=== PATIENT | male | born 1990 | race Caucasian/White ===

== ENCOUNTER 2019-01-24 08:26 | Emergency (ER) | payer SELFPAY ==
[2019-01-24 09:29] LABS: ADD MAN DIFF? NO
[2019-01-24] MEDS: morphine 2 MG INJ IV ×2 (09:32→10:59)
[2019-01-24] MEDS: FAMOTIDINE 20 MG INJ IV (09:32)
[2019-01-24] MEDS: SOD CHLORIDE 0.9% 1,000 ML IV (09:32)
[2019-01-24] MEDS: ONDANSETRON 4 MG INJ IV (09:32)
[2019-01-24 09:37] LABS: WHITE BLOOD COUNT 15.6 10^3/ul (4.8-10.8)
[2019-01-24 09:37] LABS: BASOPHIL # 0.1 10^3/ul (0.0-0.1); BASOPHILS % 0.5 % (0.0-2.0); EOSINOPHILS % 0.2 % (0.0-7.0); HEMATOCRIT 45.6 % (42.0-52.0); HEMOGLOBIN 15.1 g/dl (14.0-18.0); LYMPHOCYTES # 1.4 10^3/ul (0.8-2.9); LYMPHOCYTES % 9.2 % (15.0-51.0); MEAN CORPUSCULAR HEMOGLOBIN 27.6 pg (29.0-33.0); MEAN CORPUSCULAR HGB CONC 33.1 g/dl (32.0-37.0); MEAN CORPUSCULAR VOLUME 83.4 fl (82.0-101.0); MEAN PLATELET VOLUME 9.4 fl (7.4-10.4); MONOCYTE # 1.1 10^3/ul (0.3-0.9); MONOCYTES % 6.9 % (0.0-11.0); NEUTROPHIL # 12.9 10^3/ul (1.6-7.5); NEUTROPHILS % 82.6 % (39.0-77.0); PLATELET COUNT 366 10^3/UL (140-415); RED BLOOD COUNT 5.47 10^6/ul (4.70-6.10); RED CELL DISTRIBUTION WIDTH 12.8 % (11.5-14.5)
[2019-01-24 09:56] LABS: ALANINE AMINOTRANSFERASE 20 IU/L (13-69); ALBUMIN 4.5 g/dl (3.3-4.9); ALBUMIN/GLOBULIN RATIO 1.15; ALKALINE PHOSPHATASE 87 IU/L (42-121); ANION GAP 15 (5-13); ASPARTATE AMINO TRANSFERASE 25 IU/L (15-46); BILIRUBIN,INDIRECT 0.8 mg/dl (0-1.1); BILIRUBIN,TOTAL 0.8 mg/dl (0.2-1.3); BLOOD UREA NITROGEN 12 mg/dl (7-20); CALCIUM 10.1 mg/dl (8.4-10.2); CARBON DIOXIDE 18 mmol/L (21-31); CHLORIDE 104 mmol/L (97-110); CREATININE 0.59 mg/dl (0.61-1.24); Estimated GFR > 60 mL/min (>60); GLUCOSE 166 mg/dl (70-220); LIPASE 100 U/L (23-300); SODIUM 137 mmol/L (135-144); TOTAL PROTEIN 8.4 g/dl (6.1-8.1)
[2019-01-24] MEDS: HYDROmorphONE 0.5 MG/0.5 ML SYG IV ×2 (11:38→13:58)
[2019-01-24] MEDS: METOCLOPRAMIDE 10 MG INJ IV (11:38)
[2019-01-24] MEDS: SOD CHLORIDE 0.9% 100 ML (12:53)
[2019-01-24] MEDS: IOHEXOL 300MG/ML 150 ML BTL (12:54)
[2019-01-24 14:08] LABS: ADD UMIC YES; UR ASCORBIC ACID NEGATIVE (NEGATIVE); UR BILIRUBIN (Dip) NEGATIVE (NEGATIVE); UR BLOOD (Dip) 1+ mg/dL (NEGATIVE); UR CLARITY CLEAR (CLEAR); UR COLOR STRAW (YELLOW); UR GLUCOSE (Dip) NEGATIVE (NEGATIVE); UR KETONES (Dip) 1+ mg/dL (NEGATIVE); UR LEUKOCYTE ESTERASE (Dip) NEGATIVE Leu/ul (NEGATIVE); UR NITRITE (Dip) NEGATIVE (NEGATIVE); UR RBC 4 /HPF (0-5); UR SPECIFIC GRAVITY (Dip) 1.015 (1.003-1.030); UR TOTAL PROTEIN (Dip) NEGATIVE (NEGATIVE); UR UROBILINOGEN (Dip) NEGATIVE (NEGATIVE); UR WBC 1 /HPF (0-5)
[2019-01-24] MEDS: KETOROLAC 15 MG INJ IV (14:48)
== END 2019-01-24 15:28 | disposition home or self-care (01) ==
LOC: E/R 08:26 → FTE 15:28
DX: N20.0 Calculus of kidney (principal)
CPT/HCPCS: 36415; 74177; 76700; 80053; 81001; 82962; 83690; 85025; 96374; 96375; 96376; 99285-25

== ENCOUNTER 2019-02-23 07:28 | Observation (INO) | payer MEDICAID ==
[2019-02-23] MEDS: SOD CHLORIDE 0.9% 1,000 ML IV ×3 (07:54→14:46)
[2019-02-23] MEDS: METOCLOPRAMIDE 10 MG INJ IV (07:54)
[2019-02-23] MEDS: KETOROLAC 30 MG INJ IV ×3 (07:55→21:59)
[2019-02-23] MEDS: ONDANSETRON 4 MG INJ IV ×3 (08:24→11:58)
[2019-02-23] MEDS: morphine 2 MG INJ IV ×2 (08:42→11:59)
[2019-02-23] MEDS: KETOROLAC 15 MG INJ IV (10:26)
[2019-02-23] MEDS ORDERED: MAGNESIUM HYDROXIDE 30ML CUP PO (11:30)
[2019-02-23] MEDS ORDERED: DOCUSATE SODIUM 100 MG CAP PO (11:30)
[2019-02-23] MEDS ORDERED: BISACODYL (EC) 5 MG TAB PO (11:30)
[2019-02-23] MEDS ORDERED: ACETAMINOPHEN 650 MG SUPP PR (11:30)
[2019-02-23] MEDS ORDERED: NACL 0.9% 3 ML SYG IV (11:30)
[2019-02-23] MEDS ORDERED: ACETAMINOPHEN 325 MG TAB PO (11:30)
[2019-02-23] MEDS: CIPROFLOXACIN 400MG/D5W 200 ML IVPB ×2 (11:58→21:59)
[2019-02-23] MEDS: metroNIDAZOLE 500 MG/NS (PMX) 100 ML IVPB ×2 (14:43→21:59)
[2019-02-23] MEDS ORDERED: LORAZEPAM 2 MG INJ IV (16:30)
[2019-02-23] MEDS ORDERED: ONDANSETRON 4 MG INJ IV (16:30)
[2019-02-23] MEDS: LIDOCAINE/MYLANTA 40 ML BTL PO (18:02)
[2019-02-23] MEDS: FAMOTIDINE 20 MG INJ IV (21:59)
[2019-02-24] MEDS: LIDOCAINE/MYLANTA 40 ML BTL PO ×4 (00:35→17:17)
[2019-02-24] MEDS: KETOROLAC 30 MG INJ IV ×3 (03:06→15:26)
[2019-02-24] MEDS: SOD CHLORIDE 0.9% 1,000 ML IV ×3 (03:07→15:25)
[2019-02-24] MEDS: CIPROFLOXACIN 400MG/D5W 200 ML IVPB (08:14)
[2019-02-24] MEDS: FAMOTIDINE 20 MG INJ IV (08:14)
[2019-02-24] MEDS: ENOXAPARIN 40 MG/0.4 ML SYG SC (08:19)
[2019-02-24] MEDS: metroNIDAZOLE 500 MG/NS (PMX) 100 ML IVPB ×2 (10:04→15:26)
[2019-02-24] MEDS: POTASSIUM CHLORIDE 20 MEQ POWDER FOR ORAL SOLN PO (11:54)
[2019-02-24] MEDS: SUCRALFATE (100 MG/ML) 10ML CUP GTB (17:17)
[2019-02-24] MEDS: PANTOPRAZOLE (EC) 40 MG TAB PO (17:17)
== END 2019-02-24 19:50 | disposition home or self-care (01) ==
LOC: FTE 07:28 → 6WM 10:16
DX: R10.13 Epigastric pain (principal); K92.0 Hematemesis; N20.0 Calculus of kidney; Z72.0 Tobacco use; F12.10 Cannabis abuse, uncomplicated
CPT/HCPCS: 36415; 74176; 80053; 80061; 80307; 81001; 82340; 83036; 83605; 83690; 83735; 84100; 84105; 84443; 84560; 85025; 85610; 96360; 96361; 96365; 96367; 96372; 96374; 96375; 96376; 99285-25; G0378